=== PATIENT | male | born 1955 | race Two or more races ===

== ENCOUNTER 2016-05-06 18:51 | Emergency (ER) | payer OTHER ==
--- NOTE | 2016-05-06 19:00 | CPEKG ---
Heart Rate: 79 RR Interval: 759 P-R Interval: 140 QRSD Interval: 96 QT Interval: 360 QTC Interval: 413 P Simms: 52 QRS [place]ms: -2 T Wave [place]: 18 EKG Severity - NORMAL ECG - EKG Impression: SINUS RHYTHM Electronically Signed By: Leeann Espinosa 06-May-2016 21:11:48
[2016-05-06] MEDS ORDERED: ONDANSETRON 4 MG/2 ML VIAL ONE (19:03)
--- NOTE | 2016-05-06 19:03 | EDPHY ---
H & P Time Seen by Provider: 05/06/16 19:00 HPI/ROS: CHIEF COMPLAINT: Chest pain, hand paresthesias. HISTORY OF PRESENT ILLNESS: The patient is a 60-year-old male with a history of daily chest pain who presents with 8/10 left-sided chest pain and bilateral hand and feet paresthesias since 1200 today. The pain is described as pulsating and stabbing. Associated with paresthesias in his hands and feet. He has taken Ativan since onset. When he takes an Ativan the pain resolves but comes back. He has a history of similar symptoms but doesn't usually last this long. He has chest pain 1-2 times daily and takes Ativan when he has pain. No exertional chest pain. He denies other associated symptoms: no fever, shortness of breath, dizziness, or other complaints. Prior cardiac studies negative, but pt unsure which tests have been performed. History obtained via Khmer spanish language lecturer at bedside. REVIEW OF SYSTEMS: A complete 10-point review of systems was performed and is negative except for those items mentioned in the HPI. Past Medical/Surgical History: Hypertension, hypercholesterolemia, anxiety. Social History: Former smoker. Smoking Status: Former smoker Physical Exam: General Appearance: Alert, appears in pain. Eyes: Pupils equal and round, no conjunctival pallor or injection ENT, Mouth: Mucous membranes moist Neck: Normal inspection Respiratory: Lungs are clear to auscultation Cardiovascular: Regular rate and rhythm Gastrointestinal: Abdomen is soft and non-tender Neurological: A&O, nonfocal, normal gait Skin: Warm and dry, no rash Extremities: Nontender, no pedal edema Psychiatric: Mood and affect normal Constitutional: Initial Vital Signs Temperature (C) 36.5 C 05/06/16 18:57 Heart Rate 94 05/06/16 18:57 Respiratory Rate 18 05/06/16 18:57 Blood Pressure 164/91 H 05/06/16 18:57 O2 Sat (%) 94 05/06/16 18:57 O2 Delivery Mode Room Air O2 (L/minute) 2 Allergies/Adverse Reactions: No Known Allergies Allergy (Verified 05/06/16 18:59) Home Medications: Medication Instructions Recorded Atorvastatin Calcium 12/23/12 Carafate Oral Liquid 12/23/12 LORazepam 12/23/12 Hydrocodone Bit/Acetaminophen 12/26/12 [Hydrocodon-Acetaminoph 7.5-300] LORazepam [Ativan (*)] 12/26/12 oxyCODONE HCL/ACETAMINOPHEN 1 each PO 12/26/12 [Oxycodon-Acetaminophen 2.5-325] oxyCODONE/APAP 5/325 [Percocet 1 - 2 tab PO Q4-6PRN PRN #20 tab 12/26/12 5/325 (*)] Medical Decision Making - Diagnostics EKG Interpretation: EKG interpreted by me reveals normal sinus rhythm, rate 79, no ST or T segment changes. Imaging: Chest x-ray reviewed by Dr. Segundo, radiology, reveals: no acute findings in the chest. ED Course/Re-evaluation: This patient presents with recurrent chest pain. I reviewed his past history and he has had prior emergency department visits for similar discomfort. An IV was established and labs ordered. Chest x-ray and EKG obtained. 1923: I consulted with Sami Goldman concerning the patient's cardiac records. Pt has almost daily cp of a noncardiac etiology. Prior TMT and EGD negative. I feel that I can safely discharge this pt home, with typical pain and multiple negative prior evaluations. Differential Diagnosis: Differential diagnosis includes though it is not limited to pneumonia, pneumothorax, pulmonary embolism, aortic dissection, pericarditis, acute coronary syndrome. - Data Points Laboratory Results: Laboratory Results 05/06/16 19:04 05/06/16 19:04 Medications Given: Discontinued Medications Sodium Chloride (Ns) 1,000 mls @ 0 mls/hr IV ONCE ONE PRN Reason: Wide Open Stop: 05/06/16 19:12 Last Admin: 05/06/16 19:11 Dose: 1,000 mls Ketorolac Tromethamine (Toradol) 30 mg IVP EDNOW ONE Stop: 05/06/16 19:56 Last Admin: 05/06/16 20:02 Dose: 30 mg Lorazepam (Ativan Injection) 1 mg IVP EDNOW ONE Stop: 05/06/16 20:26 Last Admin: 05/06/16 20:35 Dose: 1 mg Ondansetron HCl (Zofran) 4 mg IVP EDNOW ONE Stop: 05/06/16 19:12 Last Admin: 05/06/16 19:11 Dose: 4 mg Departure - Departure Disposition: Home, Routine, Self-Care Clinical Impression: Chest pain Qualifiers: Chest pain type: unspecified Qualified Code(s): R07.9 - Chest pain, unspecified Condition: Good Instructions: Chest Pain (ED) Additional Instructions: Call your primary care provider tomorrow to set up a follow up appointment. Return to the emergency department for any serious worsening of condition. Referrals: [facility] [Provider Group] - As per Instructions Report Scribed for: Leeann Espinosa Report Scribed by: Kip Yee Date of Report: 05/06/16 Time of Report: 19:02 Physician Review and Approval Statement: 05/06/16 19:02 Portions of this note were transcribed by a director medical safety. I personally performed a history, physical exam, medical decision making, and confirmed accuracy of information the transcribed note.
[2016-05-06] MEDS ORDERED: NS 1,000 ML IV ONE (19:11)
[2016-05-06] MEDS ORDERED: ONDANSETRON 4 MG/2 ML VIAL IVP ONE (19:11)
[2016-05-06 19:17] LABS: % IMMATURE GRANULYOCYTES 0.1 % (0.0-1.1); ABSOLUTE IMMATURE GRANULOCYTES 0.01 10^3/uL (0.00-0.10); ADD DIFF? NO; ADD MORPH? NO; ADD SCAN? NO; ATYPICAL LYMPHOCYTE FLAG 10 (0-99); FRAGMENT RBC FLAG 0 (0-99); HEMATOCRIT 41.3 % (40.0-51.0); HEMOGLOBIN 14.2 g/dL (13.7-17.5); LEFT SHIFT FLG 0 (0-99); LIPEMIA HEMOLYSIS FLAG 90 (0-99); MEAN CELL HEMOGLOBIN 31.6 pg (27.9-34.1); MEAN CELL HEMOGLOBIN CONCENTR. 34.4 g/dL (32.4-36.7); MEAN CELL VOLUME 91.8 fL (81.5-99.8); MEAN PLATELET VOLUME 9.9 fL (8.7-11.7); PLATELET CLUMPS FLAG 0 (0-99); PLATELET COUNT 300 10^3/uL (150-400); RED CELL DISTRIBUTION WIDTH 13.8 % (11.5-15.2)
[2016-05-06 19:36] LABS: ANION GAP 11 mEq/L (8-16); CALCIUM 9.4 mg/dL (8.5-10.4); CARBON DIOXIDE 25 mEq/l (22-31); CHLORIDE 105 mEq/L (97-110); CREATININE 0.8 mg/dL (0.7-1.3); GLOMERULAR FILTRATION RATE > 60; GLUCOSE 111 mg/dL (70-100); POTASSIUM 3.6 mEq/L (3.5-5.2); SODIUM 141 mEq/L (134-144)
[2016-05-06 19:46] LABS: TROPONIN I < 0.012 ng/mL (0-0.034)
[2016-05-06] MEDS ORDERED: KETOROLAC 30 MG/1 ML SDV IVP ONE (19:55)
[2016-05-06] MEDS ORDERED: LORazepam 2 MG/ML INJ IVP ONE (20:25)
[2016-05-06 20:41] VITALS: BP 130/80; PULSE 68; RESP 20; TEMP 97.9; O2SAT 97
== END 2016-05-06 20:51 | disposition home or self-care (01) ==
DX: R07.9 Chest pain, unspecified (principal); I10 Essential (primary) hypertension; R20.2 Paresthesia of skin; Z87.891 Personal history of nicotine dependence
CPT/HCPCS: 96374; J1885; J2405

== ENCOUNTER 2016-10-03 06:05 | Emergency (ER) | payer OTHER ==
[2016-10-03 06:20] VITALS: RESP 18
--- NOTE | 2016-10-03 06:29 | CPEKG ---
Heart Rate: 95 RR Interval: 632 P-R Interval: 148 QRSD Interval: 86 QT Interval: 336 QTC Interval: 423 P [place]: 53 QRS [place]: -17 T Wave [place]: 4 EKG Severity - OTHERWISE NORMAL ECG - EKG Impression: SINUS RHYTHM EKG Impression: BORDERLINE LEFT AXIS DEVIATION Electronically Signed By: Rick Miller 03-Oct-2016 06:48:46
[2016-10-03] MEDS ORDERED: fentaNYL 100 MCG/2 ML INJ IVP ONE (06:41)
[2016-10-03 06:45] LABS: % IMMATURE GRANULYOCYTES 0.4 % (0.0-1.1); ABSOLUTE IMMATURE GRANULOCYTES 0.05 10^3/uL (0.00-0.10); ADD DIFF? NO; ADD MORPH? NO; ADD SCAN? NO; ATYPICAL LYMPHOCYTE FLAG 0 (0-99); FRAGMENT RBC FLAG 0 (0-99); HEMATOCRIT 39.2 % (40.0-51.0); HEMOGLOBIN 13.7 g/dL (13.7-17.5); LEFT SHIFT FLG 0 (0-99); LIPEMIA HEMOLYSIS FLAG 90 (0-99); MEAN CELL HEMOGLOBIN 31.6 pg (27.9-34.1); MEAN CELL HEMOGLOBIN CONCENTR. 34.9 g/dL (32.4-36.7); MEAN CELL VOLUME 90.5 fL (81.5-99.8); MEAN PLATELET VOLUME 9.5 fL (8.7-11.7); PLATELET CLUMPS FLAG 10 (0-99); PLATELET COUNT 217 10^3/uL (150-400); RED BLOOD CELL COUNT 4.33 10^6/uL (4.40-6.38); RED CELL DISTRIBUTION WIDTH 13.4 % (11.5-15.2)
--- NOTE | 2016-10-03 06:45 | EDPHY ---
H & P Stated Complaint: sweaty this am cp sob - Personal History Current Tetanus/Diphtheria Vaccine: Yes Current Tetanus Diphtheria and Acellular Pertussis (TDAP): Yes Tetanus Vaccine Date: < 10 YEARS - Medical/Surgical History Hx Asthma: No Hx Chronic Respiratory Disease: No Hx Diabetes: Yes Hx Cardiac Disease: Yes Hx Renal Disease: No Hx Cirrhosis: No Hx Alcoholism: No Hx HIV/AIDS: No Hx Splenectomy or Spleen Trauma: No Other PMH: anxiety, high Cholesterol, high blood pressure, medicine for high sugar levels - Social History Smoking Status: Former smoker Time Seen by Provider: 10/03/16 06:39 HPI/ROS: Chief Complaint: Chest pain, leg pain, sweating HPI: 60-year-old male woke at 1:10 a.m. this morning with pains in his left chest and bilateral lower legs. He has had these in the past and been seen by us and sent home with ibuprofen and acetaminophen. He took his medications but the pain persisted. Had some associated mild shortness of breath which has since resolved. Pain is about a 5/10. It is worse with movement of his legs. Patient states he did have some chills associated with this but did not take his temperature but. No recent illness. No dyspnea on exertion. No orthopnea. He does not have any risk factors for coronary artery disease other than hyperlipidemia. Does not smoke. No family history of coronary artery disease. No recent illness. No cough. No leg swelling. Patient states that the discomfort he is feeling in his legs is equal in both legs. No new numbness or weakness. No back pain. ROS: 10 point Review of Systems is negative except as noted in the HPI. PMH: Hyperlipidemia and anxiety Medications: Lorazepam, a statin, ibuprofen p.r.n., Tylenol p.r.n. Allergies: No known drug allergies Social History: No smoking, no alcohol, no recreational drug use Family History: non-contributory Physical Exam: Gen: Awake, Alert, anxious appearing, mild discomfort HEENT: Nose: no rhinorrhea Eyes: PERRLA, EOMI Mouth: Moist mucosa Neck: Supple, no JVD Chest: He has chest wall tenderness in the left chest midclavicular line no lower chest wall reproducing his presenting complaint, lungs clear to auscultation Heart: S1, S2 normal, no murmur Abd: Soft, non-tender, no guarding Back: no CVA tenderness, no midline tenderness Ext: No calf edema, no erythema, calves are soft and nontender. Normal DP and PT pulses. Capillary refills less than 3 seconds. Sensations intact in all dermatomes Skin: no rash Neuro: CN II-XII intact, Sensation grossly intact, Strength 5/5 in bilateral upper and lower extremities (Rick Miller) Constitutional: Initial Vital Signs Temperature (C) 37.3 C 10/03/16 06:16 Heart Rate 102 H 10/03/16 06:16 Respiratory Rate 18 10/03/16 06:16 Blood Pressure 121/72 H 10/03/16 06:16 O2 Sat (%) 93 10/03/16 06:16 O2 Delivery Mode Room Air O2 (L/minute) 2 Allergies/Adverse Reactions: No Known Allergies Allergy (Verified 05/06/16 18:59) Home Medications: Medication Instructions Recorded Atorvastatin Calcium 12/23/12 LORazepam 12/23/12 Medical Decision Making - Diagnostics EKG Interpretation: ECG time 06. Has sinus rhythm with a rate of 95, borderline axis deviation, normal intervals, no acute ST or T-wave changes. ECG unchanged from prior on . (Rick Miller) ED Course/Re-evaluation: 60-year-old male presenting with left-sided chest pain and bilateral calf pain since 03/20 this morning. He has had this worked up in the past. His only risk factor for coronary disease is hyperlipidemia. Given his presentation and duration my suspicion that this is cardiac in nature is low. He is having still some discomfort. Will given some IV analgesia. Will check an ECG, single troponin if negative should be sufficient to rule out acute coronary syndrome given the duration of his symptoms. Will obtain a chest x-ray as well. If his symptoms are improved his workup is negative anticipate he will be able to go home with follow-up with his primary care physician. Patient signed out to Dr. Redmond pending results of studies and analgesia. (Rick Miller) Other Provider: Care assumed at 6:55 a.m.. Discussed with Jaylan RODGERS to confirm previous treadmill stress testing. Dr. Espinosa's emergency department visit reviewed from May 06 of this year. The patient has almost daily chest pain and has previous negative workup. Plan per Dr. Miller is to treat his symptoms, a workup including troponin and chest x-ray, discharge with primary care follow-up if negative. 705: 05/12/14 negative stress test x2 outside of [place], per [facility]. 715: Patient re-evaluated. Still has a little discomfort. He took a single 200 mg oral ibuprofen at 5:00 a.m. and Ativan at 1:30 a.m. Patient denies diabetes or hypertension on direct questioning by myself at this time, in contrast to nursing notes. Nonsmoker. He says this chest pain is identical to multiple previous episodes, his troponin is negative and I think acute myocardial infarction would be unlikely given his workup. No recent travel or immobilization. D-dimer ordered, but pretest probability is lower likelihood for PE. Toradol 15 mg IV. 745: D-dimer negative, I think pulmonary embolism is now very unlikely. White blood cell count noted a slightly elevated, does not appear to have bacterial infection. Chest x-ray does not show obvious infiltrate or pneumonia. He does not have cough or continued shortness of breath. Chest x-ray does not show a widened mediastinum, does not have motor or sensory deficit in his legs, aortic dissection or aneurysm considered but I think this is unlikely. (Immanuel Redmond) - Data Points Laboratory Results: Laboratory Results 10/03/16 06:37 10/03/16 06:37 10/03/16 10/03/16 10/03/16 Unknown 06:37 06:37 WBC 13.60 10^3/uL H 10^3/uL (3.80-9.50) RBC 4.33 10^6/uL L 10^6/uL (4.40-6.38) Hgb 13.7 g/dL g/dL (13.7-17.5) Hct 39.2 % L % (40.0-51.0) MCV 90.5 fL fL (81.5-99.8) MCH 31.6 pg pg (27.9-34.1) MCHC 34.9 g/dL g/dL (32.4-36.7) RDW 13.4 % % (11.5-15.2) Plt Count 217 10^3/uL 10^3/uL (150-400) MPV 9.5 fL fL (8.7-11.7) Neut % (Auto) 87.8 % H % (39.3-74.2) Lymph % (Auto) 6.5 % L % (15.0-45.0) [place] % (Auto) 4.8 % % (4.5-13.0) Eos % (Auto) 0.2 % L % (0.6-7.6) Baso % (Auto) 0.3 % % (0.3-1.7) Nucleat RBC Rel Count 0.0 % % (0.0-0.2) Absolute Neuts (auto) 11.94 10^3/uL H 10^3/uL (1.70-6.50) Absolute Lymphs (auto) 0.89 10^3/uL L 10^3/uL (1.00-3.00) Absolute Monos (auto) 0.65 10^3/uL 10^3/uL (0.30-0.80) Absolute Eos (auto) 0.03 10^3/uL 10^3/uL (0.03-0.40) Absolute Basos (auto) 0.04 10^3/uL 10^3/uL (0.02-0.10) Absolute Nucleated RBC 0.00 10^3/uL 10^3/uL (0-0.01) Immature Gran % 0.4 % % (0.0-1.1) Immature Gran # 0.05 10^3/uL 10^3/uL (0.00-0.10) D-Dimer 0.29 ug/mLFEU ug/mLFEU (0.00-0.50) Sodium 140 mEq/L mEq/L (134-144) Potassium 3.1 mEq/L L mEq/L (3.5-5.2) Chloride 104 mEq/L mEq/L (97-110) Carbon Dioxide 23 mEq/l mEq/l (22-31) Anion Gap 13 mEq/L mEq/L (8-16) BUN 12 mg/dL mg/dL (7-23) Creatinine 0.7 mg/dL mg/dL (0.7-1.3) Estimated GFR > 60 Glucose 126 mg/dL H mg/dL (70-100) Calcium 8.9 mg/dL mg/dL (8.5-10.4) Troponin I < 0.012 ng/mL ng/mL (0-0.034) Medications Given: Discontinued Medications Fentanyl (Sublimaze) 50 mcg IVP EDNOW ONE Stop: 10/03/16 06:42 Last Admin: 10/03/16 06:46 Dose: 50 mcg Ketorolac Tromethamine (Toradol) 15 mg IVP EDNOW ONE Stop: 10/03/16 07:18 Last Admin: 10/03/16 07:27 Dose: 15 mg Departure - Departure Disposition: Home, Routine, Self-Care Clinical Impression: Chest pain of uncertain etiology Condition: Good Instructions: Chest Pain (ED) Referrals: [facility] [Other] - As per Instructions [facility] ,. [Edm Groups for Call Sched] - As per Instructions
[2016-10-03 06:55] LABS: ANION GAP 13 mEq/L (8-16); CALCIUM 8.9 mg/dL (8.5-10.4); CARBON DIOXIDE 23 mEq/l (22-31); CHLORIDE 104 mEq/L (97-110); CREATININE 0.7 mg/dL (0.7-1.3); GLOMERULAR FILTRATION RATE > 60; GLUCOSE 126 mg/dL (70-100); POTASSIUM 3.1 mEq/L (3.5-5.2); SODIUM 140 mEq/L (134-144)
[2016-10-03 07:07] LABS: TROPONIN I < 0.012 ng/mL (0-0.034)
[2016-10-03] MEDS ORDERED: KETOROLAC 15 MG/1 ML SDV IVP ONE (07:17)
[2016-10-03 08:42] VITALS: BP 129/64; PULSE 71; TEMP 98.1; O2SAT 96
== END 2016-10-03 08:41 | disposition home or self-care (01) ==
DX: R07.9 Chest pain, unspecified (principal); E11.9 Type 2 diabetes mellitus without complications; I10 Essential (primary) hypertension; Z87.891 Personal history of nicotine dependence
CPT/HCPCS: 96374; J1885; J3010

== ENCOUNTER 2016-12-12 10:46 | Emergency (ER) | payer OTHER ==
--- NOTE | 2016-12-12 11:20 | CPEKG ---
Heart Rate: 69 RR Interval: 870 QRSD Interval: 98 QT Interval: 392 QTC Interval: 420 QRS [place]: -12 T Wave [place]: -12 EKG Severity - ABNORMAL ECG - EKG Impression: SINUS RHYTHM EKG Impression: BORDERLINE T ABNORMALITIES, INFERIOR LEADS EKG Impression: artifact Electronically Signed By: Gato Donald 13-Dec-2016 08:12:14
--- NOTE | 2016-12-12 11:23 | EDPHY ---
HPI/HX/ROS/PE/MDM - Data Points Imaging: I viewed and interpreted images myself Narrative: CHIEF COMPLAINT: Left arm and chest pain HPI: The patient is a 60 y/o male with a history of left arm tendon surgery 1 day ago , complaining of left arm pain and chest pain. left arm pain. He also has an extensive history of chest pain. The patient had an outpatient tendon surgery yesterday, and was given oxycodone for the pain. Last night he began to have chest and abdominal pain, the abdominal pain is primarily located in his upper left quadrant. The pain has been constant since last night and he has been unable to sleep. However, this chest pain feels stronger than prior episodes. He also notes he is having difficulty breathing, because there is pain in his throat. His chest pain is exacerbated by taking a deep breath. The patient last saw his PCP 3 months ago. Denies fever, paresthesias, vomiting, nausea or other pertinent symptoms. A jointer operator was used for HPI and the physical exam. REVIEW OF SYSTEMS: Aside from elements discussed in the HPI, a comprehensive 10-point review of systems was reviewed and is negative. PMH: Hypercholesteremia, hypertension, anxiety SOCIAL HISTORY: Lives in [place], works for [employer], , Tian PHYSICAL EXAM: General:Patient is alert, in no acute distress. ENT:Eyes are normal to inspection. ENT inspection normal. Neck: Normal inspection. Full range of motion. Respiratory:No respiratory distress. Breath sounds normal bilaterally. Cardiovascular: Regular rate and rhythm. Strong peripheral pulses. Normal cap refill. Abdomen:The abdomen is nontender to palpation. There are no peritoneal signs. There are normal bowel sounds. Back: Normal to inspection. No tenderness to palpation. Skin: Normal color. No rash. Warm and dry. Extremities: Left arm in sling, good color to all of his fingers. Otherwise normal appearance. Full range of motion. Neuro: Oriented x3. Normal motor function. Normal sensory function. Portions of this note were transcribed by an ED scribe. I personally performed the history, physical exam, and medical decision making; and confirm the accuracy of the information in the transcribed note. (Watson Wilson) ED Course: The patient is a 60 y/o male with an extensive history of chest pain, presenting with chest, left arm, and abdominal pain. He had left arm tendon surgery yesterday and is in a sling; his fingers have good color. Otherwise, his physical exam is normal. EKG was ordered and interpreted by myself. Please see [facility] system for official reading. 1120: The patients chest x-ray is normal. 1500: CTPE shows possible thrombus RLL vs motion artifact. Dr. Martin recommended repeat CT but patient refuses. I discussed issue in detail with patient and his daughter via film painter, and he now agrees to repeat CT if given additional pain medication. Patient signed out to Dr. Cody at 3:15pm. (Watson Wilson) I assumed care of this patient from Dr. Wilson at 3:15 p.m.. At 4:30 p.m. I was notified by Dr. Martin that the repeat CT angiogram shows no evidence of PE. No other abnormality noted that would account for chest pain. These results are being relayed to the patient. He will be discharged home. (Lorenza Cody) - Data Points Imaging Results: Imaging Impressions Chest X-Ray 12/12/16 11:20 Impression: Normal chest x-ray. Laboratory Results: Laboratory Results 12/12/16 13:15 12/12/16 13:15 12/12/16 12/12/16 12/12/16 13:15 13:15 13:12 WBC 10.00 10^3/uL H 10^3/uL (3.80-9.50) RBC 4.21 10^6/uL L 10^6/uL (4.40-6.38) Hgb 13.1 g/dL L g/dL (13.7-17.5) POC Hgb 14.3 gm/dL gm/dL (13.7-17.5) Hct 38.5 % L % (40.0-51.0) POC Hct 42 % % (40-51) MCV 91.4 fL fL (81.5-99.8) MCH 31.1 pg pg (27.9-34.1) MCHC 34.0 g/dL g/dL (32.4-36.7) RDW 13.5 % % (11.5-15.2) Plt Count 246 10^3/uL 10^3/uL (150-400) MPV 9.7 fL fL (8.7-11.7) Neut % (Auto) 66.7 % % (39.3-74.2) Lymph % (Auto) 24.4 % % (15.0-45.0) [place] % (Auto) 7.9 % % (4.5-13.0) Eos % (Auto) 0.3 % L % (0.6-7.6) Baso % (Auto) 0.4 % % (0.3-1.7) Nucleat RBC Rel Count 0.0 % % (0.0-0.2) Absolute Neuts (auto) 6.67 10^3/uL H 10^3/uL (1.70-6.50) Absolute Lymphs (auto) 2.44 10^3/uL 10^3/uL (1.00-3.00) Absolute Monos (auto) 0.79 10^3/uL 10^3/uL (0.30-0.80) Absolute Eos (auto) 0.03 10^3/uL 10^3/uL (0.03-0.40) Absolute Basos (auto) 0.04 10^3/uL 10^3/uL (0.02-0.10) Absolute Nucleated RBC 0.00 10^3/uL 10^3/uL (0-0.01) Immature Gran % 0.3 % % (0.0-1.1) Immature Gran # 0.03 10^3/uL 10^3/uL (0.00-0.10) POC Sodium 142 mEq/L mEq/L (134-144) Sodium 140 mEq/L mEq/L (134-144) POC Potassium 3.5 mEq/L mEq/L (3.3-5.0) Potassium 3.7 mEq/L mEq/L (3.5-5.2) POC Chloride 103 mEq/L mEq/L (97-110) Chloride 103 mEq/L mEq/L (97-110) Carbon Dioxide 27 mEq/l mEq/l (22-31) Anion Gap 10 mEq/L mEq/L (8-16) POC BUN 10 mg/dL mg/dL (7-23) BUN 11 mg/dL mg/dL (7-23) Creatinine 0.8 mg/dL mg/dL (0.7-1.3) POC Creatinine 0.7 mg/dL mg/dL (0.7-1.3) Estimated GFR > 60 Glucose 95 mg/dL mg/dL (70-100) POC Glucose 102 mg/dL H mg/dL (70-100) Calcium 8.9 mg/dL mg/dL (8.5-10.4) Troponin I < 0.012 ng/mL ng/mL (0.000-0.034) Medications Given: Discontinued Medications Hydromorphone HCl (Dilaudid) 0.5 mg IVP EDNOW ONE Stop: 12/12/16 11:38 Last Admin: 12/12/16 12:31 Dose: 0.5 mg Hydromorphone HCl (Dilaudid) 1 mg IVP EDNOW ONE Stop: 12/12/16 15:13 Last Admin: 12/12/16 15:27 Dose: 1 mg Point of Care Test Results: 12/12/16 13:12 POC Sodium 142 POC Potassium 3.5 POC Chloride 103 POC BUN 10 POC Creatinine 0.7 POC Glucose 102 H General Time Seen by Provider: 12/12/16 11:01 Initial Vital Signs: Initial Vital Signs Temperature (C) 36.7 C 12/12/16 10:53 Heart Rate 82 12/12/16 10:53 Respiratory Rate 20 12/12/16 10:53 Blood Pressure 141/87 H 12/12/16 10:53 O2 Sat (%) 92 12/12/16 10:53 O2 Delivery Mode Room Air Allergies/Adverse Reactions: No Known Allergies Allergy (Verified 12/12/16 10:51) Home Medications: Medication Instructions Recorded Atorvastatin Calcium 12/23/12 LORazepam 12/23/12 oxyCODONE IR 12/12/16 Departure - Departure Disposition: Home, Routine, Self-Care Clinical Impression: Chest pain of uncertain etiology Condition: Good Instructions: Chest Pain (ED) Additional Instructions: It is fine to take the medicines that Dr. Coleman prescribed. We have not found a serious or life threatening explanation for your chest pain. Referrals: [facility] [Outside] - As per Instructions Print Language: Luxembourgish Report Scribed for: Watson Wilson Report Scribed by: Milka Gaspar Date of Report: 12/12/16 Time of Report: 11:23
[2016-12-12] MEDS ORDERED: HYDROmorphONE/DILAUDID 1 MG/ML INJ IVP ONE ×2 (11:37→15:12)
[2016-12-12] MEDS ORDERED: IOPAMIDOL (ISOVUE 370) 100 ML BTL IV ONE ×2 (11:45→14:42)
[2016-12-12 13:16] VITALS: RESP 16
[2016-12-12 13:30] LABS: % IMMATURE GRANULYOCYTES 0.3 % (0.0-1.1); ABSOLUTE IMMATURE GRANULOCYTES 0.03 10^3/uL (0.00-0.10); ADD DIFF? NO; ADD MORPH? NO; ADD SCAN? NO; ATYPICAL LYMPHOCYTE FLAG 0 (0-99); FRAGMENT RBC FLAG 0 (0-99); HEMATOCRIT 38.5 % (40.0-51.0); HEMOGLOBIN 13.1 g/dL (13.7-17.5); LEFT SHIFT FLG 0 (0-99); LIPEMIA HEMOLYSIS FLAG 90 (0-99); MEAN CELL HEMOGLOBIN 31.1 pg (27.9-34.1); MEAN CELL VOLUME 91.4 fL (81.5-99.8); MEAN PLATELET VOLUME 9.7 fL (8.7-11.7); PLATELET CLUMPS FLAG 0 (0-99); PLATELET COUNT 246 10^3/uL (150-400); RED BLOOD CELL COUNT 4.21 10^6/uL (4.40-6.38); RED CELL DISTRIBUTION WIDTH 13.5 % (11.5-15.2)
[2016-12-12 13:39] LABS: ANION GAP 10 mEq/L (8-16); CALCIUM 8.9 mg/dL (8.5-10.4); CARBON DIOXIDE 27 mEq/l (22-31); CHLORIDE 103 mEq/L (97-110); CREATININE 0.8 mg/dL (0.7-1.3); GLOMERULAR FILTRATION RATE > 60; GLUCOSE 95 mg/dL (70-100); POTASSIUM 3.7 mEq/L (3.5-5.2); SODIUM 140 mEq/L (134-144)
[2016-12-12 13:51] LABS: TROPONIN I < 0.012 ng/mL (0.000-0.034)
[2016-12-12 17:07] VITALS: BP 144/89; PULSE 69; TEMP 97.9; O2SAT 95
== END 2016-12-12 17:06 | disposition home or self-care (01) ==
DX: R07.9 Chest pain, unspecified (principal); I10 Essential (primary) hypertension
CPT/HCPCS: 82947-QW; 96374; J1170; Q9967

== ENCOUNTER 2018-05-21 18:33 | Emergency (ER) | payer OTHER ==
--- NOTE | 2018-05-21 19:04 | EDPHY ---
HPI/HX/ROS/PE/MDM Narrative: CHIEF COMPLAINT: Fever, abdominal pain. HISTORY OF PRESENT ILLNESS: This patient is a 62 year old male with history of hyperlipidemia, hypertension , anxiety. He developed a fever on Saturday, two days ago. Yesterday, he went to [facility] for cough, difficulty breathing, and abdominal pain. He was diagnosed with GERD, fever, and influenza-like illness and given several prescriptions. Today, he is feeling much worse with more severe pain in his abdomen, vomiting, difficulty breathing, and fever. He has tried Tylenol and ibuprofen without relief. No chest pain, palpitations, diarrhea, urinary complaints, headache, lightheadedness. REVIEW OF SYSTEMS: A comprehensive 10 system review of systems is otherwise negative aside from elements mentioned in the history of present illness and medical decision making. PAST MEDICAL HISTORY: Anxiety, hyperlipidemia, hypertension. SOCIAL HISTORY: Lives in [place]. Works for [employer] [place]. German-speaking. Nonsmoker. VITAL SIGNS: Reviewed by me. Temp 38.9. BP 147/75. HE 94. GENERAL: Well-developed, well-nourished, resting comfortably in no respiratory distress. HEENT: Atraumatic. Eyes: No icterus, no injection. Mouth: moist mucous membranes. No erythema or lesions. Neck: supple with no adenopathy. LUNGS: Clear to auscultation bilaterally, no wheezes, rhonchi or rales. CARDIAC: Regular rate and rhythm, no rubs, murmurs or gallops. ABDOMEN: Generalized abdominal pain/tenderness, questionably worse in RUQ and epigastrium. Soft, nondistended, bowel sounds normal. BACK: No CVA tenderness. EXTREMITIES: No trauma. No edema. Range of motion is normal throughout. NEURO: Alert and oriented, grossly nonfocal. SKIN: Warm and dry, no rash. PSYCHIATRIC: Normal mentation, no agitation. Portions of this note were transcribed by a medical or surgical instrument maker. I personally performed a history, physical exam, medical decision making, and confirmed accuracy of information the transcribed note. ED Course: 62 y/o male with history of hypertension, hyperlipidemia presents with three day history of fever, abdominal pain, and flu-like symptoms. He is febrile at 38.9 degrees at triage. On exam, he has diffuse generalized abdominal pain and tenderness, somewhat more severe in the RUQ and epigastric region, but exam is somewhat difficult as he winces frequently and seems unsure which area is most painful. Patient is quite febrile and meets consideration for sepsis protocols. Plan for chest x-ray, labs including CBC, chemistries, liver, lipase, coag panel , UA, flu swab, lactic acid, blood cultures. Plan to administer IV fluid bolus per sepsis protocol. 19:40 Reviewed chest x-ray. Evidence of patchy infiltrate present. Plan for DuoNeb administration. Plan for EKG. Patient now has reportedly told the nurse that he he has not taken any Tylenol or ibuprofen recently. Plan to administer 1000mg PO acetaminophen and 600mg PO ibuprofen for antipyretic effects and pain relief. 19:45 12-LEAD EKG: Please see the full report in [facility]. My interpretation: Sinus rhythm 19:50 Reviewed laboratory studies. Chemistries and coags are largely unremarkable. Lactic acid negative. Flu swab negative. CBC is still pending at this time. Plan for CT abdomen/pelvis. 20:25 On my re-examination, the patient's abdominal tenderness now seems particularly located to the RLQ. CT abdomen/pelvis is pending. 20:40 Reviewed chest x-ray radiologist report. CBC is still pending at this time , original sample was rejected by laboratory. 20:[address] Burnette, radiologist. CT abdomen/pelvis shows segmental left basilar pneumonia. Negative abdomen, without obstruction, no appendicitis. 21:10 Spoke with laboratory. Repeat CBC rejected - patient may have possible EDTA-induced platelet clumping. Plan to run CBC on a blue-top tube. 21:15 Spoke with [facility]. Plan to transfer. 21:[address] [facility] Malia Silverio accepts admission for pneumonia. MDM: Differential diagnosis for fever in adults was considered including but not limited to pneumonia, urinary tract infection, appendicitis, viral syndrome, and influenza. - Data Points Imaging Results: Imaging Impressions Chest X-Ray 05/21/18 19:10 Impression: No pneumonia. Abdomen CT 05/21/18 19:56 Impression: Segmental left basilar pneumonia. Negative abdomen, without obstruction. Results called to Dr. Consuelo Quispe at 8:45 PM. General information for patients regarding this examination can be found at [email or web address]. If you have questions or comments about this report, please contact me at (hospital) or [phone] (cell). Imaging: Discussed imaging studies w/ call center receptionist Radiologist, I viewed and interpreted images myself Laboratory Results: Laboratory Results 05/21/18 21:00 05/21/18 19:00 05/21/18 05/21/18 05/21/18 21:00 20:25 20:00 WBC 6.50 10^3/uL 10^3/uL REJ (3.80-9.50) RBC 4.02 10^6/uL L 10^6/uL REJ (4.40-6.38) Hgb 12.3 g/dL L g/dL REJ (13.7-17.5) Hct 36.1 % L % REJ (40.0-51.0) MCV 89.8 fL fL REJ (81.5-99.8) MCH 30.6 pg pg REJ (27.9-34.1) MCHC 34.1 g/dL g/dL REJ (32.4-36.7) RDW 13.9 % % REJ (11.5-15.2) Plt Count 122 10^3/uL L 10^3/uL REJ (150-400) MPV 12.3 fL H fL REJ (8.7-11.7) Neut % (Auto) 74.6 % H % REJ (39.3-74.2) Lymph % (Auto) 16.3 % % REJ (15.0-45.0) [place] % (Auto) 8.3 % % REJ (4.5-13.0) Eos % (Auto) 0.0 % L % REJ (0.6-7.6) Baso % (Auto) 0.5 % % REJ (0.3-1.7) Nucleat RBC Rel Count 0.0 % % REJ (0.0-0.2) Absolute Neuts (auto) 4.85 10^3/uL 10^3/uL REJ (1.70-6.50) Absolute Lymphs (auto) 1.06 10^3/uL 10^3/uL REJ (1.00-3.00) Absolute Monos (auto) 0.54 10^3/uL 10^3/uL REJ (0.30-0.80) Absolute Eos (auto) 0.00 10^3/uL L 10^3/uL REJ (0.03-0.40) Absolute Basos (auto) 0.03 10^3/uL 10^3/uL REJ (0.02-0.10) Absolute Nucleated RBC 0.00 10^3/uL 10^3/uL REJ (0-0.01) Immature Gran % 0.3 % % REJ (0.0-1.1) Immature Gran # 0.02 10^3/uL 10^3/uL REJ (0.00-0.10) Platelet Estimate DECREASED L (ADEQ) PT INR APTT VBG Lactic Acid Sodium Potassium Chloride Carbon Dioxide Anion Gap BUN Creatinine Estimated GFR Glucose Calcium Total Bilirubin Conjugated Bilirubin Unconjugated Bilirubin AST ALT Alkaline Phosphatase Total Protein Albumin Lipase Urine Color PALE YELLOW Urine Appearance CLEAR Urine pH 6.0 (5.0-7.5) Ur Specific [place] 1.015 (1.002-1.030) Urine Protein NEGATIVE (NEGATIVE) Urine Ketones 1+ H (NEGATIVE) Urine Blood NEGATIVE (NEGATIVE) Urine Nitrate NEGATIVE (NEGATIVE) Urine Bilirubin NEGATIVE (NEGATIVE) Urine Urobilinogen NEGATIVE EU EU (0.2-1.0) Ur Leukocyte Esterase NEGATIVE (NEGATIVE) Urine Glucose NEGATIVE (NEGATIVE) Nasal Influenza A PCR Nasal Influenza B PCR 05/21/18 05/21/18 05/21/18 19:20 19:14 19:00 WBC RBC Hgb Hct MCV MCH MCHC RDW Plt Count MPV Neut % (Auto) Lymph % (Auto) [place] % (Auto) Eos % (Auto) Baso % (Auto) Nucleat RBC Rel Count Absolute Neuts (auto) Absolute Lymphs (auto) Absolute Monos (auto) Absolute Eos (auto) Absolute Basos (auto) Absolute Nucleated RBC Immature Gran % Immature Gran # Platelet Estimate PT INR APTT VBG Lactic Acid 1.1 mmol/L mmol/L (0.7-2.1) Sodium 133 mEq/L L mEq/L (135-145) Potassium 3.7 mEq/L mEq/L (3.5-5.2) Chloride 99 mEq/L mEq/L (97-110) Carbon Dioxide 22 mEq/l mEq/l (22-31) Anion Gap 12 mEq/L mEq/L (6-14) BUN 9 mg/dL mg/dL (7-23) Creatinine 0.7 mg/dL mg/dL (0.7-1.3) Estimated GFR > 60 Glucose 113 mg/dL H mg/dL (70-100) Calcium 8.6 mg/dL mg/dL (8.5-10.4) Total Bilirubin 0.5 mg/dL mg/dL (0.1-1.4) Conjugated Bilirubin 0.4 mg/dL mg/dL (0.0-0.5) Unconjugated Bilirubin 0.1 mg/dL mg/dL (0.0-1.1) AST 24 IU/L IU/L (17-59) ALT 27 IU/L IU/L (21-72) Alkaline Phosphatase 126 IU/L IU/L (38-126) Total Protein 7.5 g/dL g/dL (6.3-8.2) Albumin 4.1 g/dL g/dL (3.5-5.0) Lipase 30 IU/L IU/L (23-300) Urine Color Urine Appearance Urine pH Ur Specific [place] Urine Protein Urine Ketones Urine Blood Urine Nitrate Urine Bilirubin Urine Urobilinogen Ur Leukocyte Esterase Urine Glucose Nasal Influenza A PCR NEGATIVE FOR FLU A (NEGATIVE) Nasal Influenza B PCR NEGATIVE FOR FLU B (NEGATIVE) 05/21/18 05/21/18 19:00 19:00 WBC REJ RBC REJ Hgb REJ Hct REJ MCV REJ MCH REJ MCHC REJ RDW REJ Plt Count REJ MPV REJ Neut % (Auto) REJ Lymph % (Auto) REJ [place] % (Auto) REJ Eos % (Auto) REJ Baso % (Auto) REJ Nucleat RBC Rel Count REJ Absolute Neuts (auto) REJ Absolute Lymphs (auto) REJ Absolute Monos (auto) REJ Absolute Eos (auto) REJ Absolute Basos (auto) REJ Absolute Nucleated RBC REJ Immature Gran % REJ Immature Gran # REJ Platelet Estimate PT 13.5 SEC SEC (12.0-15.0) INR 1.07 (0.83-1.16) APTT 31.0 SEC SEC (23.0-38.0) VBG Lactic Acid Sodium Potassium Chloride Carbon Dioxide Anion Gap BUN Creatinine Estimated GFR Glucose Calcium Total Bilirubin Conjugated Bilirubin Unconjugated Bilirubin AST ALT Alkaline Phosphatase Total Protein Albumin Lipase Urine Color Urine Appearance Urine pH Ur Specific [place] Urine Protein Urine Ketones Urine Blood Urine Nitrate Urine Bilirubin Urine Urobilinogen Ur Leukocyte Esterase Urine Glucose Nasal Influenza A PCR Nasal Influenza B PCR Medications Given: Discontinued Medications Acetaminophen (Tylenol) 1,000 mg PO EDNOW ONE Stop: 05/21/18 19:38 Last Admin: 05/21/18 19:40 Dose: 1,000 mg Albuterol/Ipratropium (Duoneb) 3 ml IH EDNOW ONE Stop: 05/21/18 19:42 Last Admin: 05/21/18 19:42 Dose: 3 ml Hydromorphone HCl (Dilaudid) 1 mg IVP EDNOW ONE Stop: 05/21/18 21:25 Last Admin: 05/21/18 21:31 Dose: 1 mg Sodium Chloride (Ns) 2,400 mls @ 4,800 mls/hr 30 ml/kg infuse over 30 min ( 2400 ml) IV EDNOW ONE PRN Reason: Protocol Stop: 05/21/18 19:38 Last Admin: 05/21/18 19:18 Dose: 2,400 mls Levofloxacin/Dextrose (Levaquin 750 Mg (Premix)) 150 mls @ 100 mls/hr IV EDNOW ONE PRN Reason: Protocol Stop: 05/21/18 22:15 Last Admin: 05/21/18 21:00 Dose: 150 mls Ibuprofen (Motrin) 600 mg PO EDNOW ONE Stop: 05/21/18 19:38 Last Admin: 05/21/18 19:40 Dose: 600 mg Ketorolac Tromethamine (Toradol) 15 mg IVP EDNOW ONE Stop: 05/21/18 21:25 Last Admin: 05/21/18 21:31 Dose: 15 mg General Time Seen by Provider: 05/21/18 18:56 Initial Vital Signs: Initial Vital Signs Temperature (C) 38.9 C H 05/21/18 18:40 Heart Rate 94 05/21/18 18:40 Respiratory Rate 17 05/21/18 18:40 Blood Pressure 147/75 H 05/21/18 18:40 O2 Sat (%) 93 05/21/18 18:40 O2 Delivery Mode Nasal Cannula O2 (L/minute) 2 Allergies/Adverse Reactions: No Known Allergies Allergy (Verified 05/21/18 18:39) Home Medications: Medication Instructions Recorded LORazepam 12/23/12 MIRTAZAPINE 05/21/18 Departure - Departure Disposition: Acute Care Hospital Not [facility] Clinical Impression: Pneumonia Qualifiers: Pneumonia type: due to unspecified organism Laterality: left Lung location: lower lobe of lung Qualified Code(s): J18.1 - Lobar pneumonia, unspecified organism Fever Qualifiers: Fever type: unspecified Qualified Code(s): R50.9 - Fever, unspecified Condition: Fair Referrals: NONE *PRIMARY CARE P,. [Primary Care Provider] - As per Instructions Report Scribed for: Consuelo Quispe Report Scribed by: Carmen Armenta Date of Report: 05/21/18 Time of Report: 21:45
[2018-05-21] MEDS ORDERED: NS 2,400 ML IV ONE (19:09)
[2018-05-21 19:35] LABS: INR 1.07 (0.83-1.16); PROTIME(PATIENT) 13.5 SEC (12.0-15.0)
[2018-05-21] MEDS ORDERED: ACETAMINOPHEN 500 MG TAB PO ONE (19:37)
[2018-05-21] MEDS ORDERED: IBUPROFEN 600 MG TAB PO ONE (19:37)
[2018-05-21] MEDS ORDERED: IPRATROPIUM/ALBUTEROL 3 ML DEYVIAL ONE (19:38)
[2018-05-21] MEDS ORDERED: IPRATROPIUM/ALBUTEROL 3 ML DEYVIAL IH ONE (19:41)
[2018-05-21] MEDS ORDERED: IOPAMIDOL (ISOVUE-300) 100 ML BTL ONE (20:11)
[2018-05-21] MEDS ORDERED: HYDROmorphONE/DILAUDID 2 MG/ML INJ IVP ONE (21:24)
[2018-05-21] MEDS ORDERED: KETOROLAC 15 MG/1 ML SDV IVP ONE (21:24)
[2018-05-21 21:31] LABS: PLATELET COUNT 122 10^3/uL (150-400)
[2018-05-21 22:27] VITALS: BP 122/67
== END 2018-05-21 23:38 | disposition short-term general hospital (02) ==
DX: J18.1 Lobar pneumonia, unspecified organism (principal); R50.9 Fever, unspecified; I10 Essential (primary) hypertension; E78.5 Hyperlipidemia, unspecified; F41.9 Anxiety disorder, unspecified
CPT/HCPCS: 96365; J1170; J1885; J1956; Q9967